=== PATIENT | female | born 1950 | race Two or more races ===

== ENCOUNTER 2024-12-29 21:52 | Inpatient (IN) | payer MEDICARE, MEDICAID ==
[~2024-12-29] VITALS: Ht 162.6 cm; Wt 51.9 kg
[2024-12-29] MEDS: SODIUM CHLORIDE 0.9% 1,000 ML IV ONE (01:30)
--- NOTE | 2024-12-29 22:04 | ED.PDOC ---
History of Present Illness HPI Comments HPI: 74 year old female DIGNA presents to the ED with chief complaint of flu-like illness. EMS reports that the patient has been experiencing generalized weakness with associated chills and tremors for the past hour. Son relays that the patient has not had any sick contacts at home and the patient denies taking any medication such as Tylenol for relief. Patient denies any chest pain, SOB, dizziness, cough, congestion, nausea, vomiting, diarrhea, or abdominal pain. pt denies bleeding from anywhere. denies recent surgery. denies bleeding disorder. Past Medical history: HTN, HLD Past Surgical history: Denies Medications: Amlodipine, Simvastatin Allergies: NKDA Social History: denies ETOH, denies tobacco use, denies drug use Initial vitals: HR: 105 Temp.: 99.7F Blood Glucose: 100 HPI: Poor Historian. REVIEW OF SYSTEMS: CONSTITUTIONAL: Denies acute: fever, diaphoresis, HEAD: Denies acute: headache, photophobia Eyes: Denies acute: Double vision, vision loss, eye pain, eye discharge. EARS: Denies acute: tinnitus, hearing loss, ear discharge, ear pain, THROAT: Denies acute: sore throat, swelling, difficulty swallowing , pain with swallowing, change in voice. NECK: Denies acute: neck pain, neck swelling, stiff neck. HEART: Denies acute : chest pain, palpitations, LUNGS: Denies acute: SOB, wheezing, cough, hemoptysis ABDOMEN: Denies acute: abdominal pain, Nausea, Vomiting, diarrhea, melena , hematemesis, hematochezia SKIN: Denies acute: rash, redness, lesions, itchiness. EXTREMITIES: Denies acute: calf pain, numbness, tingling, weakness, denies pain in extremity. Denies acute: Low back pain. Neuro: Denies acute: focal neurological deficit, motor or sensory focal neurological deficit, tremors, seizure like activity, confusion, dizziness, change in mental status, loss of bowel or bladder function, cauda equina like symptoms. : Denies acute: dysuria, hematuria, flank pain, increase in urinary frequency. PSYCH: Denies acute: hallucination, suicidal ideation, homicidal ideation. FEMALE: Denies acute: abnormal vaginal bleeding, foul odor, unusual discharge. PHYSICAL EXAM: General: ---mild-----acute distress, awake and alert. Head: normocephalic, atraumatic. Neck: supple, trachea is midline, no swelling. Throat: Normal phonation. Eyes:, no erythema, no purulent discharge, no proptosis, no icterus. Heart: Slightly tachycardic, regular rhythm, no significant murmur appreciated. Lungs: no apparent respiratory distress, Able to speak in full sentences. No wheezing, no rhonchi, no crackles. No stridors Clear to auscultation bilaterally. Abdomen: non tender to palpation, non distended, soft, no guarding, no rebound, + bowel sounds. Neuro: Awake, Alert, oriented to name, self, situation, follows commands GCS=15. Speech is normal. Skin: no petechia, no purpura, no cyanosis, non-pale, not jaundice. Lower extremities: --no - Pitting edema no deformity, no focal swelling, no calf TTP. Makes eye contact. moves all four extremities. Face: no apparent facial droop. ED COURSE: Time Seen by MD: 22:02 Reviewed Notes: Medications, Allergies Allergies: Coded Allergies: NO KNOWN ALLERGIES (Unverified , 12/29/24) Information Source: Patient, Relative, Emergency Med Personnel Mode of Arrival: EMS Was a procedure done? Was a procedure done?: No Differential Dx Considerations may include: Includes but not limited to thyroid disease, encephalopathy, electrolyte abnormality, sepsis, infection, intracranial pathology, drug adverse effects, arrhythmia, kidney insufficiency, ACS, CVA, malignancy, anemia X-Ray, Labs, Meds, VS Vital Signs Date Time Temp Pulse Resp B/P (MAP) Pulse Ox O2 Delivery O2 Flow Rate FiO2 12/30/24 01:26 90 12/30/24 01:26 98.7 12/30/24 01:09 87 12/29/24 21:54 112 12/29/24 21:52 99.4 102 14 108/55 (72) 94 99.4 Lab Test 12/30/24 02:25 12/30/24 01:51 12/30/24 01:26 12/30/24 00:22 Range/Units Prothrombin Time Pending Prothrombin Time INR Pending Activated Partial Thromboplast Time Pending Troponin I High Sensitivity Pending 824 *H </=34 ng/L POC Glucose 129 H 70-106 mg/dl Urine Color Light-yellow Yellow Urine Clarity Turbid H Clear Urine pH 5.5 5.0-9.0 Urine Specific [place] 1.014 1.001-1.035 Urine Protein Negative Negative Urine Ketones Negative Negative Urine Blood 1+ H Negative /uL Urine Nitrite 2+ H Negative Urine Bilirubin Negative Negative Urine Urobilinogen Normal Negative mg/dL Urine Leukocyte Esterase 3+ Negative /uL Urine RBC 3 0 - 4 /hpf Urine Microscopic WBC 52 H 0-5 /HPF Urine Squamous Epithelial Cells Few <5 /hpf Urine Bacteria Mod H None Seen /hpf Urine Mucus Few None Seen Urine Glucose Normal Normal mg/dL Test 12/30/24 00:18 12/29/24 23:25 12/29/24 22:36 12/29/24 11:31 Range/Units Lactic Acid Level 1.5 2.4 *H 0.4-2.0 mmol/L Troponin I High Sensitivity 511 *H 235 *H </=34 ng/L White Blood Count 8.2 4.4-10.8 10^3/uL Red Blood Count 4.09 4.0-5.20 10^6/uL Hemoglobin 12.6 12.2-16.2 g/dL Hematocrit 37.8 36.0-46.0 % Mean Corpuscular Volume 92.4 80.0-100.0 fL Mean Corpuscular Hemoglobin 30.7 28.0-32.0 pg Mean Corpuscular Hemoglobin Concent 33.3 32.0-36.0 g/dL Red Cell Distribution Width 14.6 H 11.8-14.3 % Platelet Count 167 140-450 10^3/uL Mean Platelet Volume 10.4 6.9-10.8 fL Neutrophils (%) (Auto) 89.1 H 37.0-80.0 % Lymphocytes (%) (Auto) 8.0 L 10.0-50.0 % Monocytes (%) (Auto) 1.8 0.0-12.0 % Eosinophils (%) (Auto) 0.8 0.0-7.0 % Basophils (%) (Auto) 0.3 0.0-2.0 % Neutrophils # (Auto) 7.3 1.6-8.6 10 ^3/uL Lymphocytes # (Auto) 0.7 0.4-5.4 10 ^3/uL Monocytes # (Auto) 0.2 0-1.3 10 ^3/uL Eosinophils # (Auto) 0.1 0-0.8 10 ^3/uL Basophils # (Auto) 0 0-0.2 10 ^3/uL Nucleated Red Blood Cells 0.1 % Sodium Level 140 136-145 mmol/L Potassium Level 3.8 3.5-5.1 mmol/L Chloride Level 109 H 98-107 mmol/L Carbon Dioxide Level 22 20-31 mmol/L Anion Gap 9 5-15 Blood Urea Nitrogen 13 9-23 mg/dL Creatinine 0.70 0.550-1.02 mg/dL Glomerular Filtration Rate Calc 91 >90 mL/min BUN/Creatinine Ratio 18.6 10.0-20.0 Serum Glucose 135 H 74-106 mg/dL Calcium Level 8.4 L 8.7-10.4 mg/dL Total Bilirubin 0.4 0.2-1.0 mg/dL Aspartate Amino Transferase (AST) 18 13-40 U/L Alanine Aminotransferase (ALT) 16 7-40 U/L Alkaline Phosphatase 66 46-116 U/L Total Protein 6.2 5.7-8.2 g/dL Albumin 4.0 3.2-4.8 g/dL Influenza Type A Antigen Negative Negative Influenza Type B Antigen Negative Negative SARS-CoV-2 Antigen (Rapid) Negative NEGATIVE Current Medications Medications (Trade) Dose Ordered Sig/Lucien Route Start Time Stop Time Status Last Admin Acetaminophen (Tylenol Tablet) 650 mg ONCE ONCE PO 12/29/24 22:30 12/29/24 22:31 DC 12/30/24 01:26 Aspirin (Ecotrin Enteric Coated Tablet) 325 mg ONCE ONCE PO 12/29/24 23:30 12/29/24 23:31 DC 12/30/24 01:27 Sodium Chloride 1,000 ml @ 1,000 mls/hr Q1H ONCE IV 12/29/24 23:30 12/30/24 00:29 DC 12/29/24 01:30 Ceftriaxone Sodium 50 ml @ 100 mls/hr ONCE ONCE IV 12/30/24 00:15 12/30/24 00:44 DC 12/30/24 01:27 Sodium Chloride 1,000 ml @ 1,000 mls/hr Q1H ONCE IV 12/30/24 00:15 12/30/24 01:14 DC 12/30/24 02:29 [place] [id number] Ph: [phone] DIAGNOSTIC IMAGING Diagnostic Imaging Report : [id number] Signed PATIENT: YON GANNON ACCT: [id number] UNIT: [id number] : 1950 LOC: ER ROOM / BED: / AGE / SEX: 74 / F ADM STATUS: REG ER SERVICE 19 ORDERING PHYSICIAN: CHELSEY BUTCHER DO PROCEDURE(s): CXRP - CHEST PORTABLE REASON: chills weakness ORDER NUMBER(s): [id number], ACCESSION NUMBER(s): [id number] CHEST RADIOGRAPH Indication: chills weakness Technique: Single frontal view of the chest was obtained Comparison: None FINDINGS: Lines and Tubes: None Lungs: Clear Pleura: No effusion. No pneumothorax. Cardiomediastinal contours: Unremarkable Bones: Unremarkable IMPRESSION: Clear lungs. ATED BY: LEX PADILLA DO DICTATED DATE/TIME: 12/29/242329 SIGNED BY: LEX PADILLA DO SIGNED DATE/TIME: 12/29/242329 CC: Time of 1ST Reevaluation: 00:00 Reevaluation 1ST: Unchanged Patient Education/Counseling: Diagnosis, Treatment Family Education/Counseling: No Family Present Comments Patient presented with the above HPI.---generalized weak---workup was initiated. patient was found with the above mentioned diagnosis. the following medications were ordered: please refer to order lists of meds and tests obtained by myself Dr. Butcher. Patient ED course and VS have been stabilized. Patient has been reassessed in the ED and remained in a stable condition. Pertinent incidental findings were discussed with the patient and/or family. Patient/family voices understanding and is agreeable with plan. Patient has been observed in the ED adequate length of time to insure improvement/stability. Escalation of care considered: Consideration of escalation to observation or admission Patient was found with NSTEMI. Patient has no chest pain or shortness of rigo ath. EKGs normal. Heparin bolus and drip was ordered. Aspirin ordered. Patient was ADMITTED to the medicine team for further evaluation and treatment of their presentation. All the reports of any imaging studies that were ordered by myself were reviewed by myself. Departure 1 Departure Time of Disposition: 23:32 Impression: Primary Impression: NSTEMI (non-ST elevated myocardial infarction) Additional Impression: UTI (urinary tract infection) Disposition: ADMITTED INPATIENT Admit to: Tele Condition: Guarded Discharged With: Self Critical Care Note Critical Care Time?: Yes (45 min-critical care time only) I personally scribed for CHELSEY BUTCHER DO ([email or web address]) on 12/29/24 at 22:04. Electronically submitted by Ghanshyam Rose ([email or web address]). CHELSEY BUTCHER DO Dec 29, 2024 22:04
[2024-12-29 23:19] LABS: Basophils # (auto) 0 10 ^3/uL (0-0.2); Basophils % (auto) 0.3 % (0.0-2.0); Eosinophils # (auto) 0.1 10 ^3/uL (0-0.8); Eosinophils % (auto) 0.8 % (0.0-7.0); Hematocrit 37.8 % (36.0-46.0); Hemoglobin 12.6 g/dL (12.2-16.2); Lymphocytes # (auto) 0.7 10 ^3/uL (0.4-5.4); Mean Corpuscular Hemoglobin 30.7 pg (28.0-32.0); Mean Corpuscular Hgb Conc. 33.3 g/dL (32.0-36.0); Mean Corpuscular Volume 92.4 fL (80.0-100.0); Monocytes # (auto) 0.2 10 ^3/uL (0-1.3); Monocytes % (auto) 1.8 % (0.0-12.0); Neutrophils # (auto) 7.3 10 ^3/uL (1.6-8.6); Neutrophils % (auto) 89.1 % (37.0-80.0); Nucleated Red Blood Cells % 0.1 %; Platelet Count (auto) 167 10^3/uL (140-450); Red Blood Cells 4.09 10^6/uL (4.0-5.20); Red Cell Distribution Width 14.6 % (11.8-14.3); White Blood Cell 8.2 10^3/uL (4.4-10.8)
[2024-12-29 23:29] LABS: Alanine Aminotransferase 16 U/L (7-40); Alkaline Phosphatase 66 U/L (46-116); Anion Gap 9 (5-15); Aspartate Aminotransferase 18 U/L (13-40); BUN/Creatinine Ratio 18.6 (10.0-20.0); Bilirubin, Total 0.4 mg/dL (0.2-1.0); Blood Urea Nitrogen 13 mg/dL (9-23); Carbon Dioxide 22 mmol/L (20-31); Potassium 3.8 mmol/L (3.5-5.1); Sodium 140 mmol/L (136-145); Total Protein 6.2 g/dL (5.7-8.2)
[2024-12-29 23:31] LABS: Lactic Acid w/Reflex 2.4 mmol/L (0.4-2.0)
[2024-12-29 23:32] LABS: Calcium 8.4 mg/dL (8.7-10.4); Chloride 109 mmol/L (98-107); Glucose 135 mg/dL (74-106)
--- NOTE | 2024-12-29 23:33 | DVH ---
CHEST RADIOGRAPH Indication: chills weakness Technique: Single frontal view of the chest was obtained Comparison: None FINDINGS: Lines and Tubes: None Lungs: Clear Pleura: No effusion. No pneumothorax. Cardiomediastinal contours: Unremarkable Bones: Unremarkable IMPRESSION: Clear lungs.
[2024-12-30] VITALS (7 sets, daily range): BP systolic 121–144; BP diastolic 60–77; PULSE 66–88; RESP 15–19; TEMP 97.4–99.1; O2SAT 88–99
[2024-12-30 00:13] LABS: COVID19 ANTIGEN SOFIA FIA NEGATIVE (NEGATIVE); Rapid Influenza A Negative (Negative); Rapid Influenza B Negative (Negative)
[2024-12-30] MEDS: ACETAMINOPHEN 325 MG TAB PO ONE (01:26)
[2024-12-30 01:27] LABS: Urine Bacteria MOD /hpf (None Seen); Urine Blood 1+ /uL (Negative); Urine Clarity Turbid (Clear); Urine Color Light-Yellow (Yellow); Urine Mucus FEW (None Seen); Urine Protein, UAD Negative (Negative); Urine Specific Gravity 1.014 (1.001-1.035); Urine Squamous Epithelial Cell FEW /hpf (<5); Urine Urobilinogen Normal (Negative); Urine WBC 52 /HPF (0-5); Urine pH 5.5 (5.0-9.0)
[2024-12-30] MEDS: ASPirin-EC 325mg tab PO ONE (01:27)
[2024-12-30] MEDS: cefTRIAXone 1GM/50ML D5W 50 ML IV ONE (01:27)
[2024-12-30] MEDS: SODIUM CHLORIDE 0.9% 1,000 ML IV ONE (02:29)
[2024-12-30] MEDS ORDERED: HEPARIN DRIP/D5W 100UNITS/ML 250 ML IV SCH (02:30)
[2024-12-30] MEDS ORDERED: HEPARIN SODIUM (PORCINE) 5000 UNITS/ML 1ML VIAL IV ONE ×2 (02:30→02:45)
[2024-12-30] MEDS: HEPARIN SODIUM (PORCINE) 5000 UNITS/ML 1ML VIAL IV ONE (02:59)
[2024-12-30] MEDS: HEPARIN DRIP/D5W 100UNITS/ML 250 ML IV SCH ×3 (03:05→18:01)
[2024-12-30 03:47] LABS: INR 1.06 (0.9-1.15); Partial Thromboplastin Time 25.6 SEC (24.5-34.5); Prothrombin Time 11.2 sec (9.3-11.8)
--- NOTE | 2024-12-30 05:23 | DVHHP2 ---
History of Present Illness Reason for Visit: NSTEMI (non-ST elevated myocardial infarction) History of Present Illness The patient is a 74 year old female with past medical history of hypertension an d hyperlipidemia who presented to [facility] ED with complaint of generalized weakness. Patient reports she has been experiencing generalized weakness with associated chills, tremors, fatigue, getting worse that prompted this visit. Patient was seen and evaluated in the ED, laboratory data shows WBC 8.2, platelets 167, sodium 140, potassium 3.8, BUN 13, creatinine 0.70, glucose 135, lactic acid 2.4 trending down to 1.5, troponin 235, blood pressure 108/55, heart rate 90, temperature 99.4 F, O2 saturation 94% on oxygen. Urinalysis positive for urinary tract infection. Patient was started on IV antibiotic regimen Rocephin, please see medication orders section in the computer. On my assessment, patient denies chest pain, no dizziness, no headache, currently on oxygen, no nausea, no vomiting, no fever, no chills. Patient was admitted for further evaluation and medical management. Past Medical History HTN, HLD Past Surgical History Denies all surgeries Family History Reviewed, noncontributory to the management of this case. Past Social History The patient lives at home, denies smoking, alcohol or illicit drugs abuse. Review of Systems Constitutional: Yes: Chills, Weakness; No: Fever, Sweats, Malaise, Other Eyes: No: Pain, Vision change, Conjunctivae inflammation, Eyelid inflammation, Other, Redness ENT: No: Ear pain, Ear discharge, Nose pain, Nose discharge, Nose congestion, Mouth pain, Mouth swelling, Throat pain, Throat swelling, Other Respiratory: No: Cough, Dry, Shortness of breath, SOB with excertion, Wheezing, Hemoptysis, Pleuritic Pain, Sputum, Wheezing, Other Cardiovascular: No: Chest Pain, Palpitations, Orthopnea, Paroxysmal Noc. Dyspnea, Edema, Lt Headedness, Other Gastrointestinal: No: Nausea, Vomiting, Abdominal Pain, Diarrhea, Constipation, Melena, Hematochezia, Other Genitourinary: No Dysuria, No Frequency, No Incontinence, No Hematuria, No Retention, No Other Musculoskeletal: No: other, neck pain, shoulder pain, arm pain, back pain, hand pain, leg pain, foot pain Skin: No: Rash, Lesions, Jaundice, Bruising, Other Neurological: Other (Tremors); No: Weakness, Numbness, Incoordination, Change in speech, Confusion, Seizures Allergies: Coded Allergies: NO KNOWN ALLERGIES (Unverified , 12/29/24) Medications Current Medications Medications Dose Ordered Sig/Lucien Route Start Time Stop Time Status Last Admin Dose Admin Sodium Chloride 10 ml Q8HR IV 12/30/24 06:00 Heparin Sodium/ Dextrose 250 ml @ 7 mls/hr Q24H IV 12/30/24 03:00 12/30/24 03:05 7 MLS/HR Exam Vital Signs Vital Signs Date Time Temp Pulse Resp B/P (MAP) Pulse Ox O2 Delivery O2 Flow Rate FiO2 12/30/24 01:26 90 12/30/24 01:26 98.7 12/29/24 21:52 14 108/55 (72) 94 General Appearance: Alert, Oriented X3, Cooperative, No acute distress HEENT: Atraumatic, PERRLA, EOMI, Mucous membr. moist/pink Respiratory: Clear to auscultation, Normal air movement Cardiovascular: Regular rate, Normal S1, Normal S2, No murmurs Abdominal: Normal bowel sounds, Soft, No tenderness, No hepatospenomegaly, No masses Extremities: No clubbing, No cyanosis, No edema, Normal pulses, No tenderness/swelling Skin: No rashes, No breakdown, No significant lesion Neuro: Normal speech, Normal tone, Sensation intact, Cranial nerves 3-12 NL, Reflexes 2+, Other (Generalized weakness) Psych/Mental Status: Mental status NL, Mood NL Labs/Xrays Labs Test 12/30/24 02:25 12/30/24 01:51 12/30/24 00:22 12/30/24 00:18 Range/Units Prothrombin Time 11.2 9.3-11.8 sec Prothrombin Time INR 1.06 0.9-1.15 Activated Partial Thromboplast Time 25.6 24.5-34.5 SEC Troponin I High Sensitivity 922 *H </=34 ng/L POC Glucose 129 H 70-106 mg/dl Urine Color Light-yellow Yellow Urine Clarity Turbid H Clear Urine pH 5.5 5.0-9.0 Urine Specific [place] 1.014 1.001-1.035 Urine Protein Negative Negative Urine Ketones Negative Negative Urine Blood 1+ H Negative /uL Urine Nitrite 2+ H Negative Urine Bilirubin Negative Negative Urine Urobilinogen Normal Negative mg/dL Urine Leukocyte Esterase 3+ Negative /uL Urine RBC 3 0 - 4 /hpf Urine Microscopic WBC 52 H 0-5 /HPF Urine Squamous Epithelial Cells Few <5 /hpf Urine Bacteria Mod H None Seen /hpf Urine Mucus Few None Seen Urine Glucose Normal Normal mg/dL Lactic Acid Level 1.5 0.4-2.0 mmol/L Test 12/29/24 22:36 12/29/24 11:31 Range/Units White Blood Count 8.2 4.4-10.8 10^3/uL Red Blood Count 4.09 4.0-5.20 10^6/uL Hemoglobin 12.6 12.2-16.2 g/dL Hematocrit 37.8 36.0-46.0 % Mean Corpuscular Volume 92.4 80.0-100.0 fL Mean Corpuscular Hemoglobin 30.7 28.0-32.0 pg Mean Corpuscular Hemoglobin Concent 33.3 32.0-36.0 g/dL Red Cell Distribution Width 14.6 H 11.8-14.3 % Platelet Count 167 140-450 10^3/uL Mean Platelet Volume 10.4 6.9-10.8 fL Neutrophils (%) (Auto) 89.1 H 37.0-80.0 % Lymphocytes (%) (Auto) 8.0 L 10.0-50.0 % Monocytes (%) (Auto) 1.8 0.0-12.0 % Eosinophils (%) (Auto) 0.8 0.0-7.0 % Basophils (%) (Auto) 0.3 0.0-2.0 % Neutrophils # (Auto) 7.3 1.6-8.6 10 ^3/uL Lymphocytes # (Auto) 0.7 0.4-5.4 10 ^3/uL Monocytes # (Auto) 0.2 0-1.3 10 ^3/uL Eosinophils # (Auto) 0.1 0-0.8 10 ^3/uL Basophils # (Auto) 0 0-0.2 10 ^3/uL Nucleated Red Blood Cells 0.1 % Sodium Level 140 136-145 mmol/L Potassium Level 3.8 3.5-5.1 mmol/L Chloride Level 109 H 98-107 mmol/L Carbon Dioxide Level 22 20-31 mmol/L Anion Gap 9 5-15 Blood Urea Nitrogen 13 9-23 mg/dL Creatinine 0.70 0.550-1.02 mg/dL Glomerular Filtration Rate Calc 91 >90 mL/min BUN/Creatinine Ratio 18.6 10.0-20.0 Serum Glucose 135 H 74-106 mg/dL Calcium Level 8.4 L 8.7-10.4 mg/dL Total Bilirubin 0.4 0.2-1.0 mg/dL Aspartate Amino Transferase (AST) 18 13-40 U/L Alanine Aminotransferase (ALT) 16 7-40 U/L Alkaline Phosphatase 66 46-116 U/L Total Protein 6.2 5.7-8.2 g/dL Albumin 4.0 3.2-4.8 g/dL Influenza Type A Antigen Negative Negative Influenza Type B Antigen Negative Negative SARS-CoV-2 Antigen (Rapid) Negative NEGATIVE PATIENT: YON GANNON ACCT: [id number] UNIT: [id number] : 1950 LOC: ER ROOM / BED: / AGE / SEX: 74 / F ADM STATUS: REG ER SERVICE 19 ORDERING PHYSICIAN: CHELSEY BUTCHER DO PROCEDURE(s): CXRP - CHEST PORTABLE REASON: chills weakness ORDER NUMBER(s): [id number], ACCESSION NUMBER(s): [id number] CHEST RADIOGRAPH Indication: chills weakness Technique: Single frontal view of the chest was obtained Comparison: None FINDINGS: Lines and Tubes: None Lungs: Clear Pleura: No effusion. No pneumothorax. Cardiomediastinal contours: Unremarkable Bones: Unremarkable IMPRESSION: Clear lungs. Assessment/Plan Assessment/Plan NSTEMI (non-ST elevated myocardial infarction) UTI (urinary tract infection) Generalized weakness Plan 1. Admit to telemetry unit 2. Breathing treatment 3. Pain control management 4. IV antibiotic management 5. Management of fluids and electrolytes 6. Consultation for Cardiology 7. Diagnostic test chest x-ray 8. DVT prophylaxis-on heparin drip 9. Repeat labs CBC, CMP in a.m. 10. Home medication reviewed and reconciled 11. Continue with current medical management 12. Treatment plan discussed with patient and RN. Patient verbalized understanding. Plan discussed with: Patient, Other (RN) My Orders Orders - FLORENTIN OSHEA DNP Procedure Category Date Status Time Complete Blood Count LAB 12/30/24 Verified 05:18 Comprehensive LAB 12/30/24 Verified Metabolic Panel 05:18 * Cardiology Consult CONS 12/30/24 Verified 05:18 Atorvastatin (Lipitor) PHA 12/30/24 Verified 22:00 Aspirin Tablet PHA 12/30/24 Verified 10:00 Urine Bacterial TAL 12/30/24 Verified Culture 05:18 Problem List: (1) NSTEMI (non-ST elevated myocardial infarction) (2) UTI (urinary tract infection) (3) Generalized weakness Date of Service: Dec 30, 2024 Billing Provider: FLORENTIN OSHEA DNP Common Visit Codes: 32462-[id number] INP/OBS CARE (HIGH) FLORENTIN OSHEA DNP Dec 30, 2024 05:23
[2024-12-30] MEDS ORDERED: hydrALAZINE HCL 20 MG/ML VL IV PRN (05:30)
[2024-12-30] MEDS ORDERED: NITROGLYCERIN 0.4 MG SL TAB SL PRN (05:30)
[2024-12-30] MEDS ORDERED: DOCUSATE SOD 100 MG CAP PO PRN (05:30)
[2024-12-30] MEDS ORDERED: ACETAMINOPHEN 325 MG TAB PO PRN (05:30)
[2024-12-30] MEDS ORDERED: HYDROcodone-ACET 5/325MG TAB PO PRN (05:30)
[2024-12-30] MEDS ORDERED: MORPHINE SULFATE INJ 2 MG/ml SYRG IV PRN (05:30)
[2024-12-30] MEDS ORDERED: ONDANSETRON HCL 4 MG/2 ML VIAL IV PRN (05:30)
[2024-12-30] MEDS ORDERED: SODIUM CHLOR 0.9% PF (SALINE LOCK) 10ML VIAL/SYR IV SCH (06:00)
[2024-12-30 06:12] LABS: Basophils # (auto) 0.1 10 ^3/uL (0-0.2); Basophils % (auto) 0.5 % (0.0-2.0); Eosinophils # (auto) 0 10 ^3/uL (0-0.8); Eosinophils % (auto) 0.3 % (0.0-7.0); Hematocrit 35.5 % (36.0-46.0); Hemoglobin 11.8 g/dL (12.2-16.2); Lymphocytes # (auto) 0.7 10 ^3/uL (0.4-5.4); Mean Corpuscular Hemoglobin 30.6 pg (28.0-32.0); Mean Corpuscular Hgb Conc. 33.3 g/dL (32.0-36.0); Monocytes # (auto) 0.6 10 ^3/uL (0-1.3); Monocytes % (auto) 5.1 % (0.0-12.0); Neutrophils # (auto) 9.8 10 ^3/uL (1.6-8.6); Neutrophils % (auto) 88.1 % (37.0-80.0); Platelet Count (auto) 152 10^3/uL (140-450); Red Blood Cells 3.86 10^6/uL (4.0-5.20); Red Cell Distribution Width 14.5 % (11.8-14.3); White Blood Cell 11.1 10^3/uL (4.4-10.8)
[2024-12-30] MEDS: SODIUM CHLOR 0.9% PF (SALINE LOCK) 10ML VIAL/SYR IV SCH (06:19)
[2024-12-30 06:46] LABS: Alanine Aminotransferase 14 U/L (7-40); Albumin 3.5 g/dL (3.2-4.8); Alkaline Phosphatase 54 U/L (46-116); Anion Gap 8 (5-15); Aspartate Aminotransferase 16 U/L (13-40); Bilirubin, Total 0.5 mg/dL (0.2-1.0); Carbon Dioxide 22 mmol/L (20-31); Potassium 3.6 mmol/L (3.5-5.1)
[2024-12-30 06:47] LABS: Blood Urea Nitrogen 8 mg/dL (9-23); Calcium 7.6 mg/dL (8.7-10.4); Chloride 116 mmol/L (98-107); Glucose 137 mg/dL (74-106); Sodium 146 mmol/L (136-145); Total Protein 5.5 g/dL (5.7-8.2)
[2024-12-30 08:03] LABS: INR 1.18 (0.9-1.15); Prothrombin Time 12.3 sec (9.3-11.8)
[2024-12-30 08:07] LABS: Partial Thromboplastin Time 100.6 SEC (24.5-34.5)
[2024-12-30 09:35] LABS: INR 1.17 (0.9-1.15); Prothrombin Time 12.2 sec (9.3-11.8)
[2024-12-30 09:40] LABS: Partial Thromboplastin Time 110.7 SEC (24.5-34.5)
[2024-12-30] MEDS: ASPirin 81 mg TAB PO SCH (10:00)
--- NOTE | 2024-12-30 12:13 | DVHCONRES ---
Date Seen: Dec 30, 2024 Resident Creating Document: CED LINK RESIDENT Reason for Consultation NSTEMI History of Present Illness Patient is a 74-year-old female with past medical history of hypertension and hypercholesterolemia who comes in due to shaking chills. According to the patient, since last night on 12/29/2024 she has been experiencing extreme shaking chills which is what prompted this visit to the hospital. Review of systems patient is only complaining of fatigue. Patient was noted to be in sepsis with a white count 11.1, tachycardia and elevated lactic acid, serial troponins were 235, 511, 824, 922. EKG shows sinus rhythm, no ST-elevation or depression. Past Medical History hypertension and hypercholesterolemia Past Surgical History Endoscopy, tubal ligation Social History Smoking: Denies Alcohol: Rarely Drugs: Denies Allergies: Coded Allergies: NO KNOWN ALLERGIES (Unverified , 12/29/24) Current Medications Current Medications Medications (Trade) Dose Ordered Sig/Lucien Route PRN Reason Start Time Stop Time Status Last Admin Sodium Chloride (Saline Lock Ns) 10 ml Q8HR IV 12/30/24 06:00 12/30/24 05:27 DC Heparin Sodium/ Dextrose 250 ml @ 9 mls/hr Q24H IV 12/30/24 02:30 12/30/24 02:49 DC Heparin Sodium/ Dextrose 250 ml @ 7 mls/hr Q24H IV 12/30/24 03:00 12/30/24 09:52 DC 12/30/24 03:05 Atorvastatin Calcium (Lipitor) 40 mg HS PO 12/30/24 22:00 Aspirin 81 mg DAILY PO 12/30/24 10:00 Ceftriaxone Sodium 50 ml @ 100 mls/hr DAILY@2100 IV 12/30/24 21:00 Hydralazine HCl (Apresoline Injection) 10 mg Q6HP PRN IV SBP>150 12/30/24 05:30 Sodium Chloride (Saline Lock Ns) 10 ml Q8HR IV 12/30/24 06:00 12/30/24 06:19 Acetaminophen/ Hydrocodone Bitart ([place] 5/325MG Tab) 1 tab Q4HP PRN PO MODERATE PAIN (4-6 PAIN SCALE) 12/30/24 05:30 Ondansetron HCl (Zofran) 4 mg Q4HP PRN IV NAUSEA / VOMITING 12/30/24 05:30 Docusate Sodium (Colace Capsule) 100 mg BIDPRN PRN PO FOR CONSTIPATION 12/30/24 05:30 Acetaminophen (Tylenol Tablet) 650 mg Q6HP PRN PO PAIN SCALE 1-3 OR TEMP>100.4 12/30/24 05:30 Nitroglycerin (Ntrostat Sublingual) 0.4 mg Q5MINP PRN SL FOR CHEST PAIN 12/30/24 05:30 Morphine Sulfate 2 mg Q30M PRN IV FOR CHEST PAIN 12/30/24 05:30 Heparin Sodium/ Dextrose 250 ml @ 4 mls/hr Q24H IV 12/30/24 11:00 12/30/24 11:58 Review of Systems Patient seen and examined at bedside. Patient is alert and oriented to time, place person and responding to all questions. Eyes: No Pain, No Vision change, No Conjunctivae inflammation, No Eyelid infla mmation, No Other, No Redness ENT: No Ear pain, No Ear discharge, No Nose pain, No Nose discharge, No Nose congestion, No Mouth pain, No Mouth swelling, No Throat pain, No Throat swelling, No Other Cardiovascular: No Chest Pain, No Palpitations, No Orthopnea, No Paroxysmal No Dyspnea, No Edema, No Lt Headedness, No Other Respiratory: No Cough, No Dry, No Shortness of breath, No SOB with exertion, No Wheezing, No Hemoptysis, No Pleuritic Pain, No Sputum, No Other Gastrointestinal: No Nausea, No Vomiting, No Abdominal Pain, No Diarrhea, No Constipation, No Melena, No Hematochezia, No Other Genitourinary: No Dysuria, No Frequency, No Incontinence, No Hematuria, No Retention, No Other Musculoskeletal: No other, No neck pain, No shoulder pain, No arm pain, No back pain, No hand pain, No leg pain, No foot pain Skin: No Rash, No Lesions, No Jaundice, No Bruising, No Other Vital Signs Vital Signs Date Time Temp Pulse Resp B/P (MAP) Pulse Ox O2 Delivery O2 Flow Rate FiO2 12/30/24 10:00 83 19 120/59 (79) 95 12/30/24 08:00 98.7 98.7 12/30/24 08:00 Room Air* 0 21 Physical Exam General Appearance: Cooperative. Well developed. Well nourished. NAD Head Exam: Normal inspection Neck Exam: Normal inspection. Non-tender. Normal alignment Pulmonary/Respiratory: Chest non-tender. Clear bilateral breath sounds, no crackles, no wheezing. Cardiovascular/Chest: Regular rate and rhythm. No murmurs. No JVD. Abdominal Exam: Normal bowel sounds. Soft. normal abdomen, no visible veins, Nontender. No hepatospenomegaly. No masses Ankle Exam: Negative ankle edema Lower extremities: Negative lower extremity edema Neuro/Mental Status: A&O x4. Coherent. Thoughts/Psych: Normal thought pattern. Appropriate mood and affect. Good judgement and insight Skin Exam: Normal inspection. Normal color. Warm. Dry Labs/Diagnostic Data Labs Test 12/30/24 09:00 12/30/24 06:00 12/30/24 02:25 12/30/24 01:51 Range/Units Prothrombin Time 12.2 H 9.3-11.8 sec Prothrombin Time INR 1.17 H 0.9-1.15 Activated Partial Thromboplast Time 110.7 *H 24.5-34.5 SEC White Blood Count 11.1 #H 4.4-10.8 10^3/uL Red Blood Count 3.86 L 4.0-5.20 10^6/uL Hemoglobin 11.8 L 12.2-16.2 g/dL Hematocrit 35.5 L 36.0-46.0 % Mean Corpuscular Volume 92.0 80.0-100.0 fL Mean Corpuscular Hemoglobin 30.6 28.0-32.0 pg Mean Corpuscular Hemoglobin Concent 33.3 32.0-36.0 g/dL Red Cell Distribution Width 14.5 H 11.8-14.3 % Platelet Count 152 140-450 10^3/uL Mean Platelet Volume 9.7 6.9-10.8 fL Neutrophils (%) (Auto) 88.1 H 37.0-80.0 % Lymphocytes (%) (Auto) 6.0 L 10.0-50.0 % Monocytes (%) (Auto) 5.1 0.0-12.0 % Eosinophils (%) (Auto) 0.3 0.0-7.0 % Basophils (%) (Auto) 0.5 0.0-2.0 % Neutrophils # (Auto) 9.8 H 1.6-8.6 10 ^3/uL Lymphocytes # (Auto) 0.7 0.4-5.4 10 ^3/uL Monocytes # (Auto) 0.6 0-1.3 10 ^3/uL Eosinophils # (Auto) 0 0-0.8 10 ^3/uL Basophils # (Auto) 0.1 0-0.2 10 ^3/uL Nucleated Red Blood Cells 0.0 % Sodium Level 146 #H 136-145 mmol/L Potassium Level 3.6 3.5-5.1 mmol/L Chloride Level 116 H 98-107 mmol/L Carbon Dioxide Level 22 20-31 mmol/L Anion Gap 8 5-15 Blood Urea Nitrogen 8 L 9-23 mg/dL Creatinine 0.50 L 0.550-1.02 mg/dL Glomerular Filtration Rate Calc 98 >90 mL/min BUN/Creatinine Ratio 16.0 10.0-20.0 Serum Glucose 137 H 74-106 mg/dL Calcium Level 7.6 L 8.7-10.4 mg/dL Total Bilirubin 0.5 0.2-1.0 mg/dL Aspartate Amino Transferase (AST) 16 13-40 U/L Alanine Aminotransferase (ALT) 14 7-40 U/L Alkaline Phosphatase 54 46-116 U/L Total Protein 5.5 L 5.7-8.2 g/dL Albumin 3.5 3.2-4.8 g/dL Troponin I High Sensitivity 922 *H </=34 ng/L POC Glucose 129 H 70-106 mg/dl Test 12/30/24 00:22 12/30/24 00:18 12/29/24 11:31 Range/Units Urine Color Light-yellow Yellow Urine Clarity Turbid H Clear Urine pH 5.5 5.0-9.0 Urine Specific [place] 1.014 1.001-1.035 Urine Protein Negative Negative Urine Ketones Negative Negative Urine Blood 1+ H Negative /uL Urine Nitrite 2+ H Negative Urine Bilirubin Negative Negative Urine Urobilinogen Normal Negative mg/dL Urine Leukocyte Esterase 3+ Negative /uL Urine RBC 3 0 - 4 /hpf Urine Microscopic WBC 52 H 0-5 /HPF Urine Squamous Epithelial Cells Few <5 /hpf Urine Bacteria Mod H None Seen /hpf Urine Mucus Few None Seen Urine Glucose Normal Normal mg/dL Lactic Acid Level 1.5 0.4-2.0 mmol/L Influenza Type A Antigen Negative Negative Influenza Type B Antigen Negative Negative SARS-CoV-2 Antigen (Rapid) Negative NEGATIVE Assessment Sepsis likely urosepsis NSTEMI type 2 due to above Adenosine Cardiolite stress test unremarkable Continue antibiotics Control blood pressure Rest of the management as per hospitalist Thank you so much for the opportunity to consult on your patient. Cardiology team will sign off. In case of any questions or concerns please feel free to reach out. Plan discussed with Dr. Winston Plan discussed with: Patient, Other (RN) Visit Coding Cardiology RES Date of Service: Dec 30, 2024 Billing Provider: JADA WINSTON MD Cardiology Common Codes: [id number] INP/OBS CARE (High) CED LINK RESIDENT Dec 30, 2024 12:13
--- NOTE | 2024-12-30 12:14 | ECG ---
[facility] Test Date: 2024-12-30 Test Time: 01:09:17 Pat Name: YON GANNON Department: ED Room: 0298T B Gender: F [employer]: juno : 1950 Requested By: CED LINK Order Number: [id number] Reading MD: Jorge Marques Measurements Intervals [place] Rate: 87 P: -11 TX: 160 QRS: 2 QRSD: 79 T: 45 QT: 353 QTc: 425 Interpretive Statements Sinus rhythm Probable left atrial enlargement Probable left ventricular hypertrophy Baseline wander in lead(s) II,III,aVF Electronically Signed On 12-30-2024 12:38:19 PDT by Jorge Marques Please click the below link to view image of tracing.
--- NOTE | 2024-12-30 13:37 | DVHPN2 ---
Reviewed: Care Plan, H&P, Labs, Medications, Previous Orders, Radiology Changes from previous H/P or p: No Changes Eyes: No Pain, No Vision change, No Conjunctivae inflammation, No Eyelid inflammation, No Other, No Redness ENT: No Ear pain, No Ear discharge, No Nose pain, No Nose discharge, No Nose congestion, No Mouth pain, No Mouth swelling, No Throat pain, No Throat swelling, No Other Cardiovascular: No Chest Pain, No Palpitations, No Orthopnea, No Paroxysmal Noc. Dyspnea, No Edema, No Lt Headedness, No Other Respiratory: No Cough, No Dry, No Shortness of breath, No SOB with excertion, No Wheezing, No Hemoptysis, No Pleuritic Pain, No Sputum, No Other Gastrointestinal: No Nausea, No Vomiting, No Abdominal Pain, No Diarrhea, No Constipation, No Melena, No Hematochezia, No Other Genitourinary: No Dysuria, No Frequency, No Incontinence, No Hematuria, No Retention, No Other Musculoskeletal: No other, No neck pain, No shoulder pain, No arm pain, No back pain, No hand pain, No leg pain, No foot pain Skin: No Rash, No Lesions, No Jaundice, No Bruising, No Other Objective Vitals Vital Signs Date Time Temp Pulse Resp B/P (MAP) Pulse Ox O2 Delivery O2 Flow Rate FiO2 12/30/24 12:32 98.6 82 16 121/60 (80) 96 98.6 12/30/24 08:00 Room Air* 0 21 Intake/Output Intake and Output 12/30/24 07:00 Intake Total 2078 ml Balance 2078 ml Intake IV Total 2078 ml Medications Current Medications Medications Dose Ordered Sig/Lucien Route Start Time Stop Time Status Last Admin Dose Admin Atorvastatin Calcium 40 mg HS PO 12/30/24 22:00 Aspirin 81 mg DAILY PO 12/30/24 10:00 Ceftriaxone Sodium 50 ml @ 100 mls/hr DAILY@2100 IV 12/30/24 21:00 Hydralazine HCl 10 mg Q6HP PRN IV 12/30/24 05:30 Sodium Chloride 10 ml Q8HR IV 12/30/24 06:00 12/30/24 06:19 10 ML Acetaminophen/ Hydrocodone Bitart 1 tab Q4HP PRN PO 12/30/24 05:30 Ondansetron HCl 4 mg Q4HP PRN IV 12/30/24 05:30 Docusate Sodium 100 mg BIDPRN PRN PO 12/30/24 05:30 Acetaminophen 650 mg Q6HP PRN PO 12/30/24 05:30 Nitroglycerin 0.4 mg Q5MINP PRN SL 12/30/24 05:30 Morphine Sulfate 2 mg Q30M PRN IV 12/30/24 05:30 Heparin Sodium/ Dextrose 250 ml @ 4 mls/hr Q24H IV 12/30/24 11:00 12/30/24 11:58 4 MLS/HR Laboratory Results Laboratory Tests 12/30/24 06:00 Chemistry Test 12/29/24 22:36 12/30/24 06:00 Albumin 4.0 g/dL (3.2-4.8) 3.5 g/dL (3.2-4.8) Calcium Level 8.4 mg/dL (8.7-10.4) L 7.6 mg/dL (8.7-10.4) L Total Protein 6.2 g/dL (5.7-8.2) 5.5 g/dL (5.7-8.2) L Coagulation Test 12/30/24 02:25 12/30/24 06:00 12/30/24 09:00 Prothrombin Time 11.2 sec (9.3-11.8) 12.3 sec (9.3-11.8) H 12.2 sec (9.3-11.8) H Prothrombin Time INR 1.06 (0.9-1.15) 1.18 (0.9-1.15) H 1.17 (0.9-1.15) H Activated Partial Thromboplast Time 25.6 SEC (24.5-34.5) 100.6 SEC (24.5-34.5) *H 110.7 SEC (24.5-34.5) *H LFT Test 12/29/24 22:36 12/30/24 06:00 Alanine Aminotransferase (ALT) 16 U/L (7-40) 14 U/L (7-40) Alkaline Phosphatase 66 U/L (46-116) 54 U/L (46-116) Aspartate Amino Transferase (AST) 18 U/L (13-40) 16 U/L (13-40) Total Bilirubin 0.4 mg/dL (0.2-1.0) 0.5 mg/dL (0.2-1.0) Urinalysis Test 12/30/24 00:22 Urine Color Light-yellow (Yellow) Urine Clarity Turbid (Clear) H Urine pH 5.5 (5.0-9.0) Urine Specific [place] 1.014 (1.001-1.035) Urine Protein Negative (Negative) Urine Ketones Negative (Negative) Urine Blood 1+ /uL (Negative) H Urine Nitrite 2+ (Negative) H Urine Bilirubin Negative (Negative) Urine Urobilinogen Normal mg/dL (Negative) Urine Leukocyte Esterase 3+ /uL (Negative) Urine RBC 3 /hpf (0 - 4) Urine Microscopic WBC 52 /HPF (0-5) H Urine Squamous Epithelial Cells Few /hpf (<5) Urine Bacteria Mod /hpf (None Seen) H Urine Mucus Few (None Seen) Urine Glucose Normal mg/dL (Normal) Labs and/or images reviewed: Labs reviewed by me, Image(s) reviewed by me Assessment/Plan Assessment/Plan NSTEMI (non-ST elevated myocardial infarction) with troponin [address] Baldwin treatment per ACS protocol, heparin drip, scheduled for Cardiolite stress test UTI (urinary tract infection): Blood cultures urine cultures Rocephin Acute Generalized weakness Patricia test negative Flu test negative Chest x-ray negative Plan discussed with: Patient Date of Service: Dec 30, 2024 Billing Provider: PATRICE HENDRICKSON MD Common Visit Codes: [id number] INP/OBS CARE(HIGH) PATRICE HENDRICKSON MD Dec 30, 2024 13:37
[2024-12-30 13:54] LABS: Triglycerides 55 mg/dL (< 150)
[2024-12-30 13:55] LABS: LDL Cholesterol 51 mg/dL (< 100)
[2024-12-30 13:56] LABS: Cholesterol 111 mg/dL (< 200); HDL Cholesterol 50 mg/dL (40-59)
--- NOTE | 2024-12-30 14:45 | ECG ---
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
[2024-12-30] MEDS: REGADENOSON 0.4 MG/5 ML SYRG IV ONE ×2 (14:59)
[2024-12-30 17:32] LABS: INR 1.14 (0.9-1.15); Partial Thromboplastin Time 35.6 SEC (24.5-34.5); Prothrombin Time 11.9 sec (9.3-11.8)
--- NOTE | 2024-12-30 18:07 | CONS ---
Pharmacy Clinical Information: NEW RATE 6ML/HR OR 600 UNITS/HR SINCE APTT = 35.6 @1658 12/30 PER RX PROTOCOL. NEXT APTT SHIRA @0000 12/31 OLD RATE 4 ML/HR NEW RATE INCREASED TO 6ML/HR AND REPEATED ORDER BACK PER EMILY MAYO RN PHARMACIST Dec 30, 2024 18:07
[2024-12-30] MEDS: cefTRIAXone 1GM/50ML D5W 50 ML IV SCH (21:52)
[2024-12-30] MEDS: ATORVASTATIN 20 MG TAB PO SCH (21:56)
--- NOTE | 2024-12-30 23:33 | DVHINCON2 ---
Date Seen: Dec 30, 2024 Referring Physician Ashleigh Reason for Consultation NSTEMI History of Present Illness This is a 74-year-old female with past medical history of hypertension and hypercholesterolemia who presented to the ED with complaints of shaking and chills. According to the patient, since last night on 12/29/2024 she has been experiencing extreme shaking chills which is what prompted this visit to the ED. Patient was noted to be in sepsis with a white count 11.1, tachycardia and elevated lactic acid, serial troponins were 235, 511, 824, 922. EKG shows sinus rhythm, no ST-elevation or depression. Chest x-ray shows NAD. Patient was admitted to the hospital. I am asked to consult on this patient. Past Medical History hypertension and hypercholesterolemia Past Surgical History Endoscopy, tubal ligation Family History: FH: breast cancer G8 SISTER Allergies: Coded Allergies: NO KNOWN ALLERGIES (Unverified , 12/29/24) Current Medications Current Medications Medications (Trade) Dose Ordered Sig/Lucien Route PRN Reason Start Time Stop Time Status Last Admin Sodium Chloride (Saline Lock Ns) 10 ml Q8HR IV 12/30/24 06:00 12/30/24 05:27 DC Heparin Sodium/ Dextrose 250 ml @ 9 mls/hr Q24H IV 12/30/24 02:30 12/30/24 02:49 DC Heparin Sodium/ Dextrose 250 ml @ 7 mls/hr Q24H IV 12/30/24 03:00 12/30/24 09:52 DC 12/30/24 03:05 Atorvastatin Calcium (Lipitor) 40 mg HS PO 12/30/24 22:00 Aspirin 81 mg DAILY PO 12/30/24 10:00 Ceftriaxone Sodium 50 ml @ 100 mls/hr DAILY@2100 IV 12/30/24 21:00 Hydralazine HCl (Apresoline Injection) 10 mg Q6HP PRN IV SBP>150 12/30/24 05:30 Sodium Chloride (Saline Lock Ns) 10 ml Q8HR IV 12/30/24 06:00 12/30/24 06:19 Acetaminophen/ Hydrocodone Bitart ([place] 5/325MG Tab) 1 tab Q4HP PRN PO MODERATE PAIN (4-6 PAIN SCALE) 12/30/24 05:30 Ondansetron HCl (Zofran) 4 mg Q4HP PRN IV NAUSEA / VOMITING 12/30/24 05:30 Docusate Sodium (Colace Capsule) 100 mg BIDPRN PRN PO FOR CONSTIPATION 12/30/24 05:30 Acetaminophen (Tylenol Tablet) 650 mg Q6HP PRN PO PAIN SCALE 1-3 OR TEMP>100.4 12/30/24 05:30 Nitroglycerin (Ntrostat Sublingual) 0.4 mg Q5MINP PRN SL FOR CHEST PAIN 12/30/24 05:30 Morphine Sulfate 2 mg Q30M PRN IV FOR CHEST PAIN 12/30/24 05:30 Heparin Sodium/ Dextrose 250 ml @ 4 mls/hr Q24H IV 12/30/24 11:00 12/30/24 17:45 DC 12/30/24 11:58 Heparin Sodium/ Dextrose 250 ml @ 6 mls/hr Q24H IV 12/30/24 18:00 12/30/24 18:01 Review of Systems Patient seen and examined at bedside. Patient is alert and oriented to time, place person and responding to all questions. Eyes: No Pain, No Vision change, No Conjunctivae inflammation, No Eyelid inflammation, No Other, No Redness ENT: No Ear pain, No Ear discharge, No Nose pain, No Nose discharge, No Nose congestion, No Mouth pain, No Mouth swelling, No Throat pain, No Throat swelling, No Other Cardiovascular: No Chest Pain, No Palpitations, No Orthopnea, No Paroxysmal No Dyspnea, No Edema, No Lt Headedness, No Other Respiratory: No Cough, No Dry, No Shortness of breath, No SOB with exertion, No Wheezing, No Hemoptysis, No Pleuritic Pain, No Sputum, No Other Gastrointestinal: No Nausea, No Vomiting, No Abdominal Pain, No Diarrhea, No Constipation, No Melena, No Hematochezia, No Other Genitourinary: No Dysuria, No Frequency, No Incontinence, No Hematuria, No Retention, No Other Musculoskeletal: No other, No neck pain, No shoulder pain, No arm pain, No back pain, No hand pain, No leg pain, No foot pain Skin: No Rash, No Lesions, No Jaundice, No Bruising, No Other Vital Signs Vital Signs Date Time Temp Pulse Resp B/P (MAP) Pulse Ox O2 Delivery O2 Flow Rate FiO2 12/30/24 16:30 98.2 80 18 144/66 (92) 93 98.2 12/30/24 12:32 Room Air* 0 21 Physical Exam GENERAL: Alert and oriented x 3. No acute distress. EYES: PERRL, EOMI. Anicteric. HENT: Moist mucous membranes. LUNGS: Clear to auscultation bilaterally. CARDIOVASCULAR: Regular rate and rhythm. ABDOMEN: Soft, nontender and nondistended. EXTREMITIES: No edema. NEUROLOGIC: No focal neurological deficits. SKIN: Warm, dry. Labs/Diagnostic Data Labs Test 12/30/24 16:58 12/30/24 06:00 12/30/24 01:51 12/30/24 00:22 Range/Units Prothrombin Time 11.9 H 9.3-11.8 sec Prothrombin Time INR 1.14 0.9-1.15 Activated Partial Thromboplast Time 35.6 H 24.5-34.5 SEC Troponin I High Sensitivity 239 *H </=34 ng/L White Blood Count 11.1 #H 4.4-10.8 10^3/uL Red Blood Count 3.86 L 4.0-5.20 10^6/uL Hemoglobin 11.8 L 12.2-16.2 g/dL Hematocrit 35.5 L 36.0-46.0 % Mean Corpuscular Volume 92.0 80.0-100.0 fL Mean Corpuscular Hemoglobin 30.6 28.0-32.0 pg Mean Corpuscular Hemoglobin Concent 33.3 32.0-36.0 g/dL Red Cell Distribution Width 14.5 H 11.8-14.3 % Platelet Count 152 140-450 10^3/uL Mean Platelet Volume 9.7 6.9-10.8 fL Neutrophils (%) (Auto) 88.1 H 37.0-80.0 % Lymphocytes (%) (Auto) 6.0 L 10.0-50.0 % Monocytes (%) (Auto) 5.1 0.0-12.0 % Eosinophils (%) (Auto) 0.3 0.0-7.0 % Basophils (%) (Auto) 0.5 0.0-2.0 % Neutrophils # (Auto) 9.8 H 1.6-8.6 10 ^3/uL Lymphocytes # (Auto) 0.7 0.4-5.4 10 ^3/uL Monocytes # (Auto) 0.6 0-1.3 10 ^3/uL Eosinophils # (Auto) 0 0-0.8 10 ^3/uL Basophils # (Auto) 0.1 0-0.2 10 ^3/uL Nucleated Red Blood Cells 0.0 % Sodium Level 146 #H 136-145 mmol/L Potassium Level 3.6 3.5-5.1 mmol/L Chloride Level 116 H 98-107 mmol/L Carbon Dioxide Level 22 20-31 mmol/L Anion Gap 8 5-15 Blood Urea Nitrogen 8 L 9-23 mg/dL Creatinine 0.50 L 0.550-1.02 mg/dL Glomerular Filtration Rate Calc 98 >90 mL/min BUN/Creatinine Ratio 16.0 10.0-20.0 Serum Glucose 137 H 74-106 mg/dL Calcium Level 7.6 L 8.7-10.4 mg/dL Total Bilirubin 0.5 0.2-1.0 mg/dL Aspartate Amino Transferase (AST) 16 13-40 U/L Alanine Aminotransferase (ALT) 14 7-40 U/L Alkaline Phosphatase 54 46-116 U/L Total Protein 5.5 L 5.7-8.2 g/dL Albumin 3.5 3.2-4.8 g/dL Triglycerides Level 55 < 150 mg/dL Cholesterol Level 111 < 200 mg/dL LDL Cholesterol 51 < 100 mg/dL HDL Cholesterol 50 40-59 mg/dL POC Glucose 129 H 70-106 mg/dl Urine Color Light-yellow Yellow Urine Clarity Turbid H Clear Urine pH 5.5 5.0-9.0 Urine Specific [place] 1.014 1.001-1.035 Urine Protein Negative Negative Urine Ketones Negative Negative Urine Blood 1+ H Negative /uL Urine Nitrite 2+ H Negative Urine Bilirubin Negative Negative Urine Urobilinogen Normal Negative mg/dL Urine Leukocyte Esterase 3+ Negative /uL Urine RBC 3 0 - 4 /hpf Urine Microscopic WBC 52 H 0-5 /HPF Urine Squamous Epithelial Cells Few <5 /hpf Urine Bacteria Mod H None Seen /hpf Urine Mucus Few None Seen Urine Glucose Normal Normal mg/dL Test 12/30/24 00:18 12/29/24 11:31 Range/Units Lactic Acid Level 1.5 0.4-2.0 mmol/L Influenza Type A Antigen Negative Negative Influenza Type B Antigen Negative Negative SARS-CoV-2 Antigen (Rapid) Negative NEGATIVE Microbiology Date/Time Source Procedure Growth Status 12/29/24 21:40 Blood Blood Culture - Preliminary Resulted Assessment Sepsis likely urosepsis. NSTEMI type 2 due to above. Plan/Recommendation I agree with your ongoing assessment and care of plan. Patient has been seen by [facility] Resident, we have discussed the plan with the patient. Adenosine Cardiolite stress test unremarkable. Continue antibiotics. Control blood pressure. Rest of the management as per hospitalist. Additional plan as per the hospital course. Plan discussed with: Patient NYHA Physical activity limitations: NA Date of Service: Dec 30, 2024 Billing Provider: JADA WINSTON MD Cardiology Common Codes: [id number] INP/OBS CARE (High) JADA WINSTON MD Dec 30, 2024 21:52
[2024-12-31] VITALS (7 sets, daily range): BP systolic 119–141; BP diastolic 62–78; PULSE 70–97; RESP 16–20; TEMP 96.8–98.5; O2SAT 96–97
[2024-12-31 00:47] LABS: INR 1.11 (0.9-1.15); Partial Thromboplastin Time 43.6 SEC (24.5-34.5); Prothrombin Time 11.6 sec (9.3-11.8)
[2024-12-31] MEDS: HEPARIN DRIP/D5W 100UNITS/ML 250 ML IV SCH ×2 (01:30→09:02)
[2024-12-31 07:09] LABS: Basophils # (auto) 0.1 10 ^3/uL (0-0.2); Eosinophils # (auto) 0.2 10 ^3/uL (0-0.8); Eosinophils % (auto) 3.2 % (0.0-7.0); Hematocrit 37.5 % (36.0-46.0); Hemoglobin 12.5 g/dL (12.2-16.2); Lymphocytes # (auto) 1.1 10 ^3/uL (0.4-5.4); Lymphocytes % (auto) 17.1 % (10.0-50.0); Mean Corpuscular Hemoglobin 30.7 pg (28.0-32.0); Mean Corpuscular Hgb Conc. 33.4 g/dL (32.0-36.0); Monocytes # (auto) 0.7 10 ^3/uL (0-1.3); Monocytes % (auto) 9.8 % (0.0-12.0); Neutrophils # (auto) 4.6 10 ^3/uL (1.6-8.6); Neutrophils % (auto) 68.9 % (37.0-80.0); Platelet Count (auto) 166 10^3/uL (140-450); Red Blood Cells 4.08 10^6/uL (4.0-5.20); Red Cell Distribution Width 14.3 % (11.8-14.3); White Blood Cell 6.7 10^3/uL (4.4-10.8)
[2024-12-31 07:25] LABS: Alanine Aminotransferase 14 U/L (7-40); Albumin 3.7 g/dL (3.2-4.8); Alkaline Phosphatase 60 U/L (46-116); Anion Gap 8 (5-15); Aspartate Aminotransferase 19 U/L (13-40); BUN/Creatinine Ratio 14.8 (10.0-20.0); Calcium 9.1 mg/dL (8.7-10.4); Carbon Dioxide 25 mmol/L (20-31); Potassium 3.7 mmol/L (3.5-5.1); Sodium 144 mmol/L (136-145); Total Protein 5.9 g/dL (5.7-8.2)
[2024-12-31 07:26] LABS: Bilirubin, Total 0.3 mg/dL (0.2-1.0); Blood Urea Nitrogen 8 mg/dL (9-23); Chloride 111 mmol/L (98-107); Glucose 108 mg/dL (74-106)
[2024-12-31 07:35] LABS: Rapid Influenza A Negative (Negative); Rapid Influenza B Negative (Negative)
[2024-12-31 08:45] LABS: INR 1.11 (0.9-1.15); Prothrombin Time 11.6 sec (9.3-11.8)
[2024-12-31 08:54] LABS: Partial Thromboplastin Time 78.4 SEC (24.5-34.5)
[2024-12-31 09:21] LABS: COVID19 ANTIGEN SOFIA FIA NEGATIVE (NEGATIVE)
--- NOTE | 2024-12-31 12:58 | DVHPN2 ---
Reviewed: Care Plan, H&P, Labs, Medications, Previous Orders, Radiology Changes from previous H/P or p: No Changes Eyes: No Pain, No Vision change, No Conjunctivae inflammation, No Eyelid inflammation, No Other, No Redness ENT: No Ear pain, No Ear discharge, No Nose pain, No Nose discharge, No Nose congestion, No Mouth pain, No Mouth swelling, No Throat pain, No Throat swelling, No Other Cardiovascular: No Chest Pain, No Palpitations, No Orthopnea, No Paroxysmal Noc. Dyspnea, No Edema, No Lt Headedness, No Other Respiratory: No Cough, No Dry, No Shortness of breath, No SOB with excertion, No Wheezing, No Hemoptysis, No Pleuritic Pain, No Sputum, No Other Gastrointestinal: No Nausea, No Vomiting, No Abdominal Pain, No Diarrhea, No Constipation, No Melena, No Hematochezia, No Other Genitourinary: No Dysuria, No Frequency, No Incontinence, No Hematuria, No Retention, No Other Musculoskeletal: No other, No neck pain, No shoulder pain, No arm pain, No back pain, No hand pain, No leg pain, No foot pain Skin: No Rash, No Lesions, No Jaundice, No Bruising, No Other Objective Vitals Vital Signs Date Time Temp Pulse Resp B/P (MAP) Pulse Ox O2 Delivery O2 Flow Rate FiO2 12/31/24 09:00 98.5 89 18 119/62 (81) 96 98.5 12/31/24 08:00 Room Air* 0 21 Intake/Output Intake and Output 12/31/24 06:59 Intake Total 1409 ml Balance 1409 ml Intake Oral 1340 ml IV Total 69 ml # Voids 11 # Bowel Movements 1 Medications Current Medications Medications Dose Ordered Sig/Lucien Route Start Time Stop Time Status Last Admin Dose Admin Atorvastatin Calcium 40 mg HS PO 12/30/24 22:00 12/30/24 21:56 40 MG Aspirin 81 mg DAILY PO 12/30/24 10:00 Ceftriaxone Sodium 50 ml @ 100 mls/hr DAILY@2100 IV 12/30/24 21:00 12/30/24 21:52 100 MLS/HR Hydralazine HCl 10 mg Q6HP PRN IV 12/30/24 05:30 Sodium Chloride 10 ml Q8HR IV 12/30/24 06:00 12/31/24 06:24 10 ML Acetaminophen/ Hydrocodone Bitart 1 tab Q4HP PRN PO 12/30/24 05:30 Ondansetron HCl 4 mg Q4HP PRN IV 12/30/24 05:30 Docusate Sodium 100 mg BIDPRN PRN PO 12/30/24 05:30 Acetaminophen 650 mg Q6HP PRN PO 12/30/24 05:30 Nitroglycerin 0.4 mg Q5MINP PRN SL 12/30/24 05:30 Morphine Sulfate 2 mg Q30M PRN IV 12/30/24 05:30 Heparin Sodium/ Dextrose 250 ml @ 6 mls/hr Q24H IV 12/31/24 10:30 12/31/24 09:02 6 MLS/HR Laboratory Results Laboratory Tests 12/31/24 06:09 Chemistry Test 12/31/24 06:09 Albumin 3.7 g/dL (3.2-4.8) Calcium Level 9.1 mg/dL (8.7-10.4) Total Protein 5.9 g/dL (5.7-8.2) Coagulation Test 12/30/24 16:58 12/31/24 00:16 12/31/24 07:46 Prothrombin Time 11.9 sec (9.3-11.8) H 11.6 sec (9.3-11.8) 11.6 sec (9.3-11.8) Prothrombin Time INR 1.14 (0.9-1.15) 1.11 (0.9-1.15) 1.11 (0.9-1.15) Activated Partial Thromboplast Time 35.6 SEC (24.5-34.5) H 43.6 SEC (24.5-34.5) H 78.4 SEC (24.5-34.5) *H LFT Test 12/31/24 06:09 Alanine Aminotransferase (ALT) 14 U/L (7-40) Alkaline Phosphatase 60 U/L (46-116) Aspartate Amino Transferase (AST) 19 U/L (13-40) Total Bilirubin 0.3 mg/dL (0.2-1.0) Urinalysis Test 12/30/24 00:22 Urine Color Light-yellow (Yellow) Urine Clarity Turbid (Clear) H Urine pH 5.5 (5.0-9.0) Urine Specific [place] 1.014 (1.001-1.035) Urine Protein Negative (Negative) Urine Ketones Negative (Negative) Urine Blood 1+ /uL (Negative) H Urine Nitrite 2+ (Negative) H Urine Bilirubin Negative (Negative) Urine Urobilinogen Normal mg/dL (Negative) Urine Leukocyte Esterase 3+ /uL (Negative) Urine RBC 3 /hpf (0 - 4) Urine Microscopic WBC 52 /HPF (0-5) H Urine Squamous Epithelial Cells Few /hpf (<5) Urine Bacteria Mod /hpf (None Seen) H Urine Mucus Few (None Seen) Urine Glucose Normal mg/dL (Normal) Microbiology Microbiology Date/Time Source Procedure Growth Status 12/30/24 00:22 Voided Urine Urine Culture - Preliminary Resulted 12/29/24 21:40 Blood Blood Culture - Preliminary Resulted Labs and/or images reviewed: Labs reviewed by me, Image(s) reviewed by me Assessment/Plan Assessment/Plan Sepsis secondary to urinary tract infection Bacteremia with Gram-negative rods final result pending continue Rocephin NSTEMI (non-ST elevated myocardial infarction) with troponin [address] Baldwin treatment per ACS protocol, Cardiolite stress test negative, no further cardiac workup UTI (urinary tract infection): Rocephin Acute Generalized weakness Patricia test negative Flu test negative Chest x-ray negative [id number] Gracie [phone] at bedside Plan discussed with: Patient Date of Service: Dec 31, 2024 Billing Provider: PATRICE HENDRICKSON MD Common Visit Codes: [id number] INP/OBS CARE(HIGH) PATRICE HENDRICKSON MD Dec 31, 2024 12:58
[2024-12-31 15:24] LABS: INR 1.03 (0.9-1.15); Partial Thromboplastin Time 28.2 SEC (24.5-34.5); Prothrombin Time 10.9 sec (9.3-11.8)
[2025-01-01] VITALS (7 sets, daily range): BP systolic 128–151; BP diastolic 63–77; PULSE 68–98; RESP 16–18; TEMP 96.5–97.7; O2SAT 95–98
--- NOTE | 2025-01-01 00:30 | DVHPN2 ---
Progress Note - Dictate Date Seen: Dec 31, 2024 Medical Necessity Reason Pt with a Central, PICC or Fol: No Subjective Patient was seen and evaluated in follow up. Patient is complaining of generalized pain. Family at bedside. CBC and Chemistry are unremarkable. Prelim blood cultures growing gram negative rods. Telemetry reviewed. vital signs Vital Sign Date Time Temp Pulse Resp B/P (MAP) Pulse Ox O2 Delivery O2 Flow Rate FiO2 12/31/24 16:49 96.8 87 18 134/78 (96) 97 96.8 12/31/24 08:00 Room Air* 0 21 Total Intake and Output 12/30/24 12/30/24 12/31/24 15:00 23:00 07:00 Intake Total 362 ml 1040 ml Balance 362 ml 1040 ml medications Current Medications Medications Dose Ordered Sig/Lucien Route Start Time Stop Time Status Last Admin Dose Admin Atorvastatin Calcium 40 mg HS PO 12/30/24 22:00 12/31/24 21:07 40 MG Aspirin 81 mg DAILY PO 12/30/24 10:00 Ceftriaxone Sodium 50 ml @ 100 mls/hr DAILY@2100 IV 12/30/24 21:00 12/31/24 20:28 100 MLS/HR Hydralazine HCl 10 mg Q6HP PRN IV 12/30/24 05:30 Sodium Chloride 10 ml Q8HR IV 12/30/24 06:00 12/31/24 21:08 10 ML Acetaminophen/ Hydrocodone Bitart 1 tab Q4HP PRN PO 12/30/24 05:30 Ondansetron HCl 4 mg Q4HP PRN IV 12/30/24 05:30 Docusate Sodium 100 mg BIDPRN PRN PO 12/30/24 05:30 Acetaminophen 650 mg Q6HP PRN PO 12/30/24 05:30 Nitroglycerin 0.4 mg Q5MINP PRN SL 12/30/24 05:30 Morphine Sulfate 2 mg Q30M PRN IV 12/30/24 05:30 objective GENERAL: Alert and oriented x 3. No acute distress. EYES: PERRL, EOMI. Anicteric. HENT: Moist mucous membranes. LUNGS: Clear to auscultation bilaterally. CARDIOVASCULAR: Regular rate and rhythm. ABDOMEN: Soft, nontender and nondistended. EXTREMITIES: No edema. NEUROLOGIC: No focal neurological deficits. SKIN: Warm, dry. laboratory and microbiology Laboratory Tests 12/31/24 06:09 Test 12/31/24 06:09 Range/Units Serum Glucose 108 H 74-106 mg/dL Problem List Sepsis likely urosepsis. NSTEMI type 2 due to above. Assessment/Plan Continued all current supportive medical care. Morphine and [place] for pain management. Aspirin, Lipitor. IV antibiotics as ordered. IV Hydralazine for SBP > 150. Additional plan as per the hospital course. Plan discussed with: Patient JADA WINSTON MD Dec 31, 2024 22:02
[2025-01-01 06:14] LABS: Basophils # (auto) 0.1 10 ^3/uL (0-0.2); Eosinophils # (auto) 0.2 10 ^3/uL (0-0.8); Eosinophils % (auto) 3.2 % (0.0-7.0); Hematocrit 36.1 % (36.0-46.0); Hemoglobin 12.2 g/dL (12.2-16.2); Lymphocytes # (auto) 1.1 10 ^3/uL (0.4-5.4); Lymphocytes % (auto) 20.4 % (10.0-50.0); Mean Corpuscular Hemoglobin 30.7 pg (28.0-32.0); Mean Corpuscular Hgb Conc. 33.7 g/dL (32.0-36.0); Mean Corpuscular Volume 91.2 fL (80.0-100.0); Monocytes # (auto) 0.6 10 ^3/uL (0-1.3); Monocytes % (auto) 11.6 % (0.0-12.0); Neutrophils # (auto) 3.5 10 ^3/uL (1.6-8.6); Neutrophils % (auto) 63.8 % (37.0-80.0); Platelet Count (auto) 169 10^3/uL (140-450); Red Blood Cells 3.96 10^6/uL (4.0-5.20); Red Cell Distribution Width 14.3 % (11.8-14.3); White Blood Cell 5.6 10^3/uL (4.4-10.8)
--- NOTE | 2025-01-01 12:54 | DVHPN2 ---
Reviewed: Care Plan, H&P, Labs, Medications, Previous Orders, Radiology Changes from previous H/P or p: No Changes Eyes: No Pain, No Vision change, No Conjunctivae inflammation, No Eyelid inflammation, No Other, No Redness ENT: No Ear pain, No Ear discharge, No Nose pain, No Nose discharge, No Nose congestion, No Mouth pain, No Mouth swelling, No Throat pain, No Throat swelling, No Other Cardiovascular: No Chest Pain, No Palpitations, No Orthopnea, No Paroxysmal Noc. Dyspnea, No Edema, No Lt Headedness, No Other Respiratory: No Cough, No Dry, No Shortness of breath, No SOB with excertion, No Wheezing, No Hemoptysis, No Pleuritic Pain, No Sputum, No Other Gastrointestinal: No Nausea, No Vomiting, No Abdominal Pain, No Diarrhea, No Constipation, No Melena, No Hematochezia, No Other Genitourinary: No Dysuria, No Frequency, No Incontinence, No Hematuria, No Retention, No Other Musculoskeletal: No other, No neck pain, No shoulder pain, No arm pain, No back pain, No hand pain, No leg pain, No foot pain Skin: No Rash, No Lesions, No Jaundice, No Bruising, No Other Objective Vitals Vital Signs Date Time Temp Pulse Resp B/P (MAP) Pulse Ox O2 Delivery O2 Flow Rate FiO2 01/01/25 09:00 96.9 70 18 137/63 (87) 97 96.9 01/01/25 08:00 Room Air* 0 21 Intake/Output Intake and Output 01/01/25 07:00 Intake Total 1470 ml Balance 1470 ml Intake Oral 1420 ml IV Total 50 ml # Voids 3 Medications Current Medications Medications Dose Ordered Sig/Lucien Route Start Time Stop Time Status Last Admin Dose Admin Atorvastatin Calcium 40 mg HS PO 12/30/24 22:00 12/31/24 21:07 40 MG Aspirin 81 mg DAILY PO 12/30/24 10:00 01/01/25 10:26 81 MG Ceftriaxone Sodium 50 ml @ 100 mls/hr DAILY@2100 IV 12/30/24 21:00 12/31/24 20:28 100 MLS/HR Hydralazine HCl 10 mg Q6HP PRN IV 12/30/24 05:30 Sodium Chloride 10 ml Q8HR IV 12/30/24 06:00 01/01/25 05:28 10 ML Acetaminophen/ Hydrocodone Bitart 1 tab Q4HP PRN PO 12/30/24 05:30 Ondansetron HCl 4 mg Q4HP PRN IV 12/30/24 05:30 Docusate Sodium 100 mg BIDPRN PRN PO 12/30/24 05:30 Acetaminophen 650 mg Q6HP PRN PO 12/30/24 05:30 Nitroglycerin 0.4 mg Q5MINP PRN SL 12/30/24 05:30 Morphine Sulfate 2 mg Q30M PRN IV 12/30/24 05:30 Laboratory Results Laboratory Tests 12/31/24 06:09 01/01/25 05:20 Coagulation Test 12/31/24 14:55 Prothrombin Time 10.9 sec (9.3-11.8) Prothrombin Time INR 1.03 (0.9-1.15) Activated Partial Thromboplast Time 28.2 SEC (24.5-34.5) Urinalysis Test 12/30/24 00:22 Urine Color Light-yellow (Yellow) Urine Clarity Turbid (Clear) H Urine pH 5.5 (5.0-9.0) Urine Specific [place] 1.014 (1.001-1.035) Urine Protein Negative (Negative) Urine Ketones Negative (Negative) Urine Blood 1+ /uL (Negative) H Urine Nitrite 2+ (Negative) H Urine Bilirubin Negative (Negative) Urine Urobilinogen Normal mg/dL (Negative) Urine Leukocyte Esterase 3+ /uL (Negative) Urine RBC 3 /hpf (0 - 4) Urine Microscopic WBC 52 /HPF (0-5) H Urine Squamous Epithelial Cells Few /hpf (<5) Urine Bacteria Mod /hpf (None Seen) H Urine Mucus Few (None Seen) Urine Glucose Normal mg/dL (Normal) Microbiology Microbiology Date/Time Source Procedure Growth Status 12/30/24 00:22 Voided Urine Urine Culture - Final Complete 12/29/24 21:40 Blood Blood Culture - Preliminary Resulted Labs and/or images reviewed: Labs reviewed by me, Image(s) reviewed by me Assessment/Plan Assessment/Plan Sepsis secondary to urinary tract infection Bacteremia with Gram-negative rods final result pending continue Rocephin NSTEMI (non-ST elevated myocardial infarction) with troponin [address] Baldwin treatment per ACS protocol, Cardiolite stress test negative, no further cardiac workup UTI : Rocephin, urine cultures mixed Acute Generalized weakness Patricia test negative Flu test negative Chest x-ray negative [id number] Gracie [phone] at bedside Son Richard [phone] at bed side Plan discussed with: Patient Date of Service: Jan 01, 2025 Billing Provider: PATRICE HENDRICKSON MD Common Visit Codes: [id number] INP/OBS CARE(HIGH) PATRICE HENDRICKSON MD Jan 01, 2025 12:54
--- NOTE | 2025-01-01 23:31 | DVHPN2 ---
Progress Note - Dictate Date Seen: Jan 01, 2025 Medical Necessity Reason Pt with a Central, PICC or Fol: No Subjective Patient was seen and evaluated in follow up. Patient is complaining of generalized pain. Urine culture grew 100,000 CFU/mL Mixed [place] >3 [place] Types. Telemetry reviewed. vital signs Vital Sign Date Time Temp Pulse Resp B/P (MAP) Pulse Ox O2 Delivery O2 Flow Rate FiO2 01/01/25 09:00 96.9 70 18 137/63 (87) 97 96.9 01/01/25 08:00 Room Air* 0 21 Total Intake and Output 12/31/24 12/31/24 01/01/25 15:00 23:00 07:00 Intake Total 440 ml 530 ml 500 ml Balance 440 ml 530 ml 500 ml medications Current Medications Medications Dose Ordered Sig/Lucien Route Start Time Stop Time Status Last Admin Dose Admin Atorvastatin Calcium 40 mg HS PO 12/30/24 22:00 12/31/24 21:07 40 MG Aspirin 81 mg DAILY PO 12/30/24 10:00 01/01/25 10:26 81 MG Ceftriaxone Sodium 50 ml @ 100 mls/hr DAILY@2100 IV 12/30/24 21:00 12/31/24 20:28 100 MLS/HR Hydralazine HCl 10 mg Q6HP PRN IV 12/30/24 05:30 Sodium Chloride 10 ml Q8HR IV 12/30/24 06:00 01/01/25 05:28 10 ML Acetaminophen/ Hydrocodone Bitart 1 tab Q4HP PRN PO 12/30/24 05:30 Ondansetron HCl 4 mg Q4HP PRN IV 12/30/24 05:30 Docusate Sodium 100 mg BIDPRN PRN PO 12/30/24 05:30 Acetaminophen 650 mg Q6HP PRN PO 12/30/24 05:30 Nitroglycerin 0.4 mg Q5MINP PRN SL 12/30/24 05:30 Morphine Sulfate 2 mg Q30M PRN IV 12/30/24 05:30 objective GENERAL: Alert and oriented x 3. No acute distress. EYES: PERRL, EOMI. Anicteric. HENT: Moist mucous membranes. LUNGS: Clear to auscultation bilaterally. CARDIOVASCULAR: Regular rate and rhythm. ABDOMEN: Soft, nontender and nondistended. EXTREMITIES: No edema. NEUROLOGIC: No focal neurological deficits. SKIN: Warm, dry. laboratory and microbiology Laboratory Tests 01/01/25 05:20 12/31/24 06:09 Test 12/31/24 06:09 Range/Units Serum Glucose 108 H 74-106 mg/dL Problem List Sepsis likely urosepsis. NSTEMI type 2 due to above. Assessment/Plan Continued all current supportive medical care. Morphine and [place] for pain management. Aspirin, Lipitor. IV antibiotics as ordered. IV Hydralazine for SBP > 150. Additional plan as per the hospital course. Plan discussed with: Patient JADA WINSTON MD Jan 01, 2025 13:26
[2025-01-02 01:00] VITALS: BP 123/64; PULSE 83; RESP 18; TEMP 97.7; O2SAT 95
[2025-01-02 07:17] VITALS: BP 150/66; PULSE 79; RESP 17; TEMP 98.2; O2SAT 96
[2025-01-02 08:15] VITALS: PULSE 84
[2025-01-02 09:00] VITALS: BP 139/44; PULSE 85; RESP 17; TEMP 98.4; O2SAT 98
--- NOTE | 2025-01-02 11:02 | DVHSR ---
APPROVED REPORT Exam: Nuclear Stress Test BMI: 0 Stress Test Details Stress Test: Pharmacologic stress testing performed using 0.4 mg of regadenoson per 5 mL given IV ov er 10 seconds. HR Resting HR: 77 bpmMax Heart Rate (APMHR): 146.471283 bpm Max HR Achieved: 112 bpmTarget HR (85% APMHR): 124.360560 bpm % of APMHR: 76.71 Recovery HR: 80 bpm BP Resting BP: 116/66 mmHg Recovery BP: 120/64 mmHg ECG Resting ECG: Sinus Rhythm Clinical Reason for Termination: Completed protocol Nurse Comments Recieved pt. from [facility]. A/Ox4 on RA. Connected to ekg monitor tech, VS stable. PIV flushes well. Re viewed POC. Pt. verbalized understanding of procedure including risks and side effects, agrees for st ress testing. Lexiscan stress test performed per protocol. [facility] tech administered Cardiolite. Pt. tolerated well . Pt. stable, no change on exam. VS returned to baseline. Transferred to [facility] via wheelchair w/ te ch. Stress ECG Conclusion lvef >70% normal perfusion scan no severe ischemia notd NM EXAM: Myocardial Perfusion REST/STRESS Imaging Protocol: Rest Tc-99m/Stress Tc-99m 1 day Resting Data Rest SPECT myocardial perfusion imaging was performed in supine position 45 minutes following the int ravenous injection of 9.5 mCi of Tc-99m Sestamibi. Time of rest injection: 1245 Time of rest imagin Administration Route: IV Administration Site: Left AC Pharmacologic Stress Pharmacologic stress test was performed by injecting Regadenoson 0.4 mg IV push followed by the intra venous injection of 27.1 mCi of Tc-99m Sestamibi. Time of stress injection: 1430 Time of stress imagin Administration Route: IV Administration Site: Left AC Gated Stress SPECT was performed 60 minutes after stress injection. The images were gated to evaluate regional wall motion and calculate left ventricular ejection fracti on. Nuclear Conclusion Nuclear Findings: negative for ischemia lvef >70% normal perfusion scan no severe ischemia notd
[2025-01-02 13:02] VITALS: BP 130/71; PULSE 86; RESP 16; TEMP 97.8; O2SAT 96
--- NOTE | 2025-01-02 13:36 | DVHPN2 ---
Reviewed: Care Plan, H&P, Labs, Medications, Previous Orders, Radiology Changes from previous H/P or p: No Changes Eyes: No Pain, No Vision change, No Conjunctivae inflammation, No Eyelid inflammation, No Other, No Redness ENT: No Ear pain, No Ear discharge, No Nose pain, No Nose discharge, No Nose congestion, No Mouth pain, No Mouth swelling, No Throat pain, No Throat swelling, No Other Cardiovascular: No Chest Pain, No Palpitations, No Orthopnea, No Paroxysmal Noc. Dyspnea, No Edema, No Lt Headedness, No Other Respiratory: No Cough, No Dry, No Shortness of breath, No SOB with excertion, No Wheezing, No Hemoptysis, No Pleuritic Pain, No Sputum, No Other Gastrointestinal: No Nausea, No Vomiting, No Abdominal Pain, No Diarrhea, No Constipation, No Melena, No Hematochezia, No Other Genitourinary: No Dysuria, No Frequency, No Incontinence, No Hematuria, No Retention, No Other Musculoskeletal: No other, No neck pain, No shoulder pain, No arm pain, No back pain, No hand pain, No leg pain, No foot pain Skin: No Rash, No Lesions, No Jaundice, No Bruising, No Other Objective Vitals Vital Signs Date Time Temp Pulse Resp B/P (MAP) Pulse Ox O2 Delivery O2 Flow Rate FiO2 01/02/25 13:02 97.8 86 16 130/71 (90) 96 97.8 01/02/25 08:15 Room Air* 0 21 Intake/Output Intake and Output 01/02/25 07:00 Intake Total 1322 ml Output Total 2 ml Balance 1320 ml Intake Oral 1272 ml IV Total 50 ml Output Urine Total 2 ml # Voids 5 Medications Current Medications Medications Dose Ordered Sig/Lucien Route Start Time Stop Time Status Last Admin Dose Admin Atorvastatin Calcium 40 mg HS PO 12/30/24 22:00 01/01/25 21:01 40 MG Aspirin 81 mg DAILY PO 12/30/24 10:00 01/02/25 09:24 81 MG Ceftriaxone Sodium 50 ml @ 100 mls/hr DAILY@2100 IV 12/30/24 21:00 01/01/25 20:30 100 MLS/HR Hydralazine HCl 10 mg Q6HP PRN IV 12/30/24 05:30 Sodium Chloride 10 ml Q8HR IV 12/30/24 06:00 01/02/25 05:45 10 ML Acetaminophen/ Hydrocodone Bitart 1 tab Q4HP PRN PO 12/30/24 05:30 Ondansetron HCl 4 mg Q4HP PRN IV 12/30/24 05:30 Docusate Sodium 100 mg BIDPRN PRN PO 12/30/24 05:30 Acetaminophen 650 mg Q6HP PRN PO 12/30/24 05:30 Nitroglycerin 0.4 mg Q5MINP PRN SL 12/30/24 05:30 Morphine Sulfate 2 mg Q30M PRN IV 12/30/24 05:30 Laboratory Results Laboratory Tests 12/31/24 06:09 01/01/25 05:20 Urinalysis Test 12/30/24 00:22 Urine Color Light-yellow (Yellow) Urine Clarity Turbid (Clear) H Urine pH 5.5 (5.0-9.0) Urine Specific [place] 1.014 (1.001-1.035) Urine Protein Negative (Negative) Urine Ketones Negative (Negative) Urine Blood 1+ /uL (Negative) H Urine Nitrite 2+ (Negative) H Urine Bilirubin Negative (Negative) Urine Urobilinogen Normal mg/dL (Negative) Urine Leukocyte Esterase 3+ /uL (Negative) Urine RBC 3 /hpf (0 - 4) Urine Microscopic WBC 52 /HPF (0-5) H Urine Squamous Epithelial Cells Few /hpf (<5) Urine Bacteria Mod /hpf (None Seen) H Urine Mucus Few (None Seen) Urine Glucose Normal mg/dL (Normal) Microbiology Microbiology Date/Time Source Procedure Growth Status 01/01/25 14:47 Urine - Midstream Clean Catch Urine Culture - Preliminary Resulted 12/29/24 21:40 Blood Blood Culture - Preliminary Resulted Labs and/or images reviewed: Labs reviewed by me, Image(s) reviewed by me Assessment/Plan Assessment/Plan Sepsis secondary to urinary tract infection Bacteremia with Gram-negative rods final result pending continue Rocephin NSTEMI (non-ST elevated myocardial infarction) with troponin [address] Baldwin treatment per ACS protocol, Cardiolite stress test negative, no further cardiac workup UTI : Rocephin, urine cultures mixed Acute Generalized weakness Patricia test negative Flu test negative Chest x-ray negative [id number] Gracie [phone] at bedside Son Richard [phone] at bed side Plan discussed with: Patient My Orders Orders - PATRICE HENDRICKSON MD Procedure Category Date Status Time Urine Bacterial TAL 01/01/25 In Process Culture 12:52 Date of Service: Jan 02, 2025 Billing Provider: PATRICE HENDRICKSON MD Common Visit Codes: [id number] INP/OBS CARE(HIGH) PATRICE HENDRICKSON MD Jan 02, 2025 13:36
[2025-01-02] MEDS ORDERED: CIPR-173 PO (13:37)
--- NOTE | 2025-01-02 13:40 | DVHDS2 ---
Discharge Summary Date of Admission Dec 30, 2024 at 05:18 Date of Discharge: Jan 02, 2025 Admitting Diagnosis Generalized weakness Wounds: None Labs/Diagnostic Data: Laboratory Results Test 01/01/25 05:20 12/31/24 14:55 12/31/24 06:09 12/31/24 05:25 White Blood Count 5.6 10^3/uL (4.4-10.8) Red Blood Count 3.96 10^6/uL (4.0-5.20) Hemoglobin 12.2 g/dL (12.2-16.2) Hematocrit 36.1 % (36.0-46.0) Mean Corpuscular Volume 91.2 fL (80.0-100.0) Mean Corpuscular Hemoglobin 30.7 pg (28.0-32.0) Mean Corpuscular Hemoglobin Concent 33.7 g/dL (32.0-36.0) Red Cell Distribution Width 14.3 % (11.8-14.3) Platelet Count 169 10^3/uL (140-450) Mean Platelet Volume 10.2 fL (6.9-10.8) Neutrophils (%) (Auto) 63.8 % (37.0-80.0) Lymphocytes (%) (Auto) 20.4 % (10.0-50.0) Monocytes (%) (Auto) 11.6 % (0.0-12.0) Eosinophils (%) (Auto) 3.2 % (0.0-7.0) Basophils (%) (Auto) 1.0 % (0.0-2.0) Neutrophils # (Auto) 3.5 10 ^3/uL (1.6-8.6) Lymphocytes # (Auto) 1.1 10 ^3/uL (0.4-5.4) Monocytes # (Auto) 0.6 10 ^3/uL (0-1.3) Eosinophils # (Auto) 0.2 10 ^3/uL (0-0.8) Basophils # (Auto) 0.1 10 ^3/uL (0-0.2) Nucleated Red Blood Cells 0.0 % Prothrombin Time 10.9 sec (9.3-11.8) Prothrombin Time INR 1.03 (0.9-1.15) Activated Partial Thromboplast Time 28.2 SEC (24.5-34.5) Sodium Level 144 mmol/L (136-145) Potassium Level 3.7 mmol/L (3.5-5.1) Chloride Level 111 mmol/L (98-107) Carbon Dioxide Level 25 mmol/L (20-31) Anion Gap 8 (5-15) Blood Urea Nitrogen 8 mg/dL (9-23) Creatinine 0.54 mg/dL (0.550-1.02) Glomerular Filtration Rate Calc 97 mL/min (>90) BUN/Creatinine Ratio 14.8 (10.0-20.0) Serum Glucose 108 mg/dL (74-106) Calcium Level 9.1 mg/dL (8.7-10.4) Total Bilirubin 0.3 mg/dL (0.2-1.0) Aspartate Amino Transferase (AST) 19 U/L (13-40) Alanine Aminotransferase (ALT) 14 U/L (7-40) Alkaline Phosphatase 60 U/L (46-116) Total Protein 5.9 g/dL (5.7-8.2) Albumin 3.7 g/dL (3.2-4.8) Influenza Type A Antigen Negative (Negative) Influenza Type B Antigen Negative (Negative) SARS-CoV-2 Antigen (Rapid) Negative (NEGATIVE) Test 12/30/24 16:58 12/30/24 06:00 12/30/24 01:51 12/30/24 00:22 Troponin I High Sensitivity 239 ng/L (</=34) Triglycerides Level 55 mg/dL (< 150) Cholesterol Level 111 mg/dL (< 200) LDL Cholesterol 51 mg/dL (< 100) HDL Cholesterol 50 mg/dL (40-59) POC Glucose 129 mg/dl (70-106) Urine Color Light-yellow (Yellow) Urine Clarity Turbid (Clear) Urine pH 5.5 (5.0-9.0) Urine Specific [place] 1.014 (1.001-1.035) Urine Protein Negative (Negative) Urine Ketones Negative (Negative) Urine Blood 1+ /uL (Negative) Urine Nitrite 2+ (Negative) Urine Bilirubin Negative (Negative) Urine Urobilinogen Normal mg/dL (Negative) Urine Leukocyte Esterase 3+ /uL (Negative) Urine RBC 3 /hpf (0 - 4) Urine Microscopic WBC 52 /HPF (0-5) Urine Squamous Epithelial Cells Few /hpf (<5) Urine Bacteria Mod /hpf (None Seen) Urine Mucus Few (None Seen) Urine Glucose Normal mg/dL (Normal) Test 12/30/24 00:18 Lactic Acid Level 1.5 mmol/L (0.4-2.0) Other Laboratory Tests 01/01/25 05:20 12/31/24 06:09 Brief Hx & Hospital Course: 74-year-old female admitted for generalized weakness found to be having urinary tract infection treated with Rocephin blood cultures contaminated and urine cultures also contaminated. Mild chest pain non ST-elevation TX with troponin of 922. Seen by Cardiology Dr. Baldwin advised patient has non ST-elevation TX type 2 secondary to UTI no further cardiac workup Patricia test negative flu test negative chest x-ray negative at the time of discharge patient is afebrile no pain and alert and awake ambulating. Discharged home on Cipro for UTI. Antony Ramos at bedside Consults/Reason for consult Cardiology Dr. Baldwin Operations or Procedures None Condition at Discharge: Fair Final Diagnosis/Problems List Sepsis secondary to urinary tract infection Bacteremia with Gram-negative rods final result pending continue Rocephin NSTEMI (non-ST elevated myocardial infarction) with troponin [address] Baldwin treatment per ACS protocol, Cardiolite stress test negative, no further cardiac workup UTI : Rocephin, urine cultures mixed Acute Generalized weakness Patricia test negative Flu test negative Chest x-ray negative Discharge Disposition: Home Discharge Instruct/Medications Diet: Cardiac 2g Na,low cholest Activity: Light activity Follow Up/Referral: Follow up with the primary Dr Swan all previous home medications Medications: Cipro Transmitted to pharmacy 39 (Time taken for discharge summary 39 minutes) Discharge Statement: "Patient was advised to return to the ER or call 911 if any headaches, dizziness, shortness of breath, chest pain, abdominal pain, bleeding, fevers, or worsening of medical condition. Patient was counseled about treatment plan, medications, possible side effects, patientverbalized understanding. All questions were answered to the best of my ability. This discharge took greater then 30 minutes in planning, reviewing documentation, counseling the patient, and discussing with other team members." ASSESSMENT ASSESSMENT Hospital Course Uneventful Assessment Sepsis secondary to urinary tract infection Bacteremia with Gram-negative rods final result pending continue Rocephin NSTEMI (non-ST elevated myocardial infarction) with troponin [address] Baldwin treatment per ACS protocol, Cardiolite stress test negative, no further cardiac workup UTI : Rocephin, urine cultures mixed Acute Generalized weakness Patricia test negative Flu test negative Chest x-ray negative Date of Service: Jan 02, 2025 Billing Provider: PATRICE HENDRICKSON MD Common Visit Codes: 00917-UMK/OBS DISCH DAY >30min PATRICE HENDRICKSON MD Jan 02, 2025 13:40
--- NOTE | 2025-01-03 00:28 | DVHPN2 ---
Progress Note - Dictate Date Seen: Jan 02, 2025 Medical Necessity Reason Pt with a Central, PICC or Fol: No Subjective Patient was seen and evaluated in follow up. Patient has no new complaints at this time. Patient denies any cardiac symptoms. Patient is cardiac stable for discharge. Telemetry reviewed. vital signs Vital Sign Date Time Temp Pulse Resp B/P (MAP) Pulse Ox O2 Delivery O2 Flow Rate FiO2 01/02/25 13:02 97.8 86 16 130/71 (90) 96 97.8 01/02/25 08:15 Room Air* 0 21 objective GENERAL: Alert and oriented x 3. No acute distress. EYES: PERRL, EOMI. Anicteric. HENT: Moist mucous membranes. LUNGS: Clear to auscultation bilaterally. CARDIOVASCULAR: Regular rate and rhythm. ABDOMEN: Soft, nontender and nondistended. EXTREMITIES: No edema. NEUROLOGIC: No focal neurological deficits. SKIN: Warm, dry. laboratory and microbiology Laboratory Tests 01/01/25 05:20 12/31/24 06:09 Test 12/31/24 06:09 Range/Units Serum Glucose 108 H 74-106 mg/dL Problem List Sepsis likely urosepsis. NSTEMI type 2 due to above. Assessment/Plan Continued all current supportive medical care. Morphine and [place] for pain management. Aspirin, Lipitor. IV antibiotics as ordered. IV Hydralazine for SBP > 150. Additional plan as per the hospital course. Plan discussed with: Patient JADA WINSTON MD Jan 03, 2025 00:28
== END 2025-01-02 14:57 | disposition home or self-care (01) | DRG 871 ==
LOC: EDBD 21:52 → ER 22:00 → OVERFLOW 12-30 05:18 → TELE-WESTW 12-30 11:40
PROVIDERS: ADMIT Family Medicine; ATTEND Family Medicine
DX: A41.9 Sepsis, unspecified organism (principal); I21.A1 Myocardial infarction type 2; E87.20 Acidosis, unspecified; N30.01 Acute cystitis with hematuria; Z20.822 Contact with and (suspected) exposure to COVID-19; E78.00 Pure hypercholesterolemia, unspecified; I10 Essential (primary) hypertension; Z80.3 Family history of malignant neoplasm of breast; Z79.899 Other long term (current) drug therapy
CPT/HCPCS: 36415; 71045; 78452; 80053; 80061; 81001; 82962; 83605; 84484; 85025; 85610; 85730; 87040; 87077; 87086; 87186; 87426; 87804; 93005; 93017; 96365; 99291; G0378